=== PATIENT | male | born 1990 | race Hispanic/Latino ===

== ENCOUNTER 2024-01-28 23:07 | Emergency (ER) | payer SELFPAY ==
[2024-01-28 23:28] LABS: % Basophils 0.4 % (0-2); % Immature Granulocytes 0.4 % (0-0.5); % Lymphocytes 18.7 % (20.5-51.1); % Monocytes 7.2 % (1.7-9.3); % Neutrophils 73.3 % (42.2-75.2); Absolute Basophils 0.1 10^3/uL (0-0.2); Absolute Immature Granulocytes 0.1 10^3/uL (0-0.05); Absolute Lymphocytes 3.6 10^3/uL (1.2-3.4); Absolute Monocytes 1.4 10^3/uL (0.1-0.6); Absolute Neutrophils 14.2 10^3/uL (1.4-6.5); Hematocrit 46.7 % (39.0-52.0); Hemoglobin 17.4 g/dL (13.0-18.0); Mean Corp Hgb Conc. 37.3 g/dL (33.0-37.0); Mean Corpuscular Volume 80.5 fL (80.0-94.0); Mean Platelet Volume 10.8 fL (7.4-10.4); Nucleated Red Blood Cells % 0 % (-); Platelet Count 333 10^3/uL (130-400); Red Cell Dist. Width 12.6 % (11.5-14.5); White Blood Cell Count 19.3 10^3/uL (4.8-10.8)
[2024-01-28] MEDS: NSS 1000 IV (23:28)
[2024-01-28 23:32] VITALS: BP 152/95
[2024-01-28 23:45] LABS: Albumin > 6.0 g/dl (3.5-5.0); Alkaline Phosphatase 171 U/L (38-126); Blood Urea Nitrogen 23 mg/dl (9-20); Calcium 10.6 mg/dl (8.4-10.2); Carbon Dioxide 15 mmol/L (22-30); Chloride 86 mmol/L (98-107); Creatine Phosphokinase 1281 U/L (55-170); Glucose 204 mg/dl (70-99); Sodium 137 mmol/L (135-145); Total Bilirubin 1.4 mg/dl (0.2-1.3)
[2024-01-28 23:56] LABS: ALT (SGPT) 74 U/L (0-50); AST (SGOT) 84 U/L (17-59); Total Protein 10.3 g/dl (6.3-8.2); Troponin I 0.013 ng/ml
--- NOTE | 2024-01-28 23:56 | ED.GENMED ---
History of Present Illness
General
Chief Complaint: Fainting/Passed Out
Source: patient
Exam Limitations: none
Time Seen by Provider: 01/28/24 23:08
Nursing documentation reviewed up to this point in time: agreed with
History of Present Illness
History of Present Illness:
33-year-old male [place]-speaking, history performed with the help of HTP, presents after being found on the side of the road by law enforcement. 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
heat. Patient states that he drinks some water but does not feel that he drink enough. Denies any alcohol or drug use. Patient denies headache. When police found him, they called 911. EMS started a line gave him IV fluids and packed his
extremities and core with ice. Upon arrival patient stated he felt a lot better. Was able to drink fluids after the first liter of IV fluids completed.
Past History
Past History
ED Past Medical History: None
ED Past Surgical History: None
Review of Systems
Review of Systems
Allergies reviewed?: Yes
All Other Systems: ROS reviewed and negative except as documented in HPI and ROS
Constitutional: Reports fatigue
EENT: Reports no symptoms
Respiratory: Reports no symptoms
Cardiac: Reports palpitations
ABD/GI: Reports no symptoms
: Reports no symptoms
Musculoskeletal: Reports muscle pain and muscle stiffness
Skin: Reports no symptoms
Neurological: Reports dizzy
Endocrine: Reports no symptoms
Hematologic/Lymphatic: Reports no symptoms
Psychiatric: Reports no symptoms
Phy Exam
General Physical Exam
General Presentation: mild distress
General age: appears stated age
General Skin: warm, dry and flushed
General Habitus: normal
General Mental: alert
General Hydration: appears well hydrated
ENT Exam
ENT Exam: EOMI, pharynx normal, neck supple and normocephalic
Eye Exam
Eye Exam: PERRL, cornea clear and conjunctiva normal
Cardiovascular Exam
Cardiovascular Exam: regular rate/rhythm, no edema, no murmur and normal peripheral pulses
Pulmonary Exam
Pulmonary Exam: lungs clear, no respiratory distress, no rales, no crackles, no rhonchi, no stridor, no wheezing and no cough
Gastrointestinal Exam
Gastrointestinal Exam: normal bowel sounds, non tender, soft, no organomegaly, no pulsatile mass and non distended
Neurological Exam
Neurological Exam: alert and oriented x3
Musculoskeletal Exam
Musculoskeletal Exam: full ROM and no edema
Skin Exam
Skin Exam: warm/dry and warmth
Psychiatric Exam
Psychiatric Exam: normal mood/affect
Course
Orders/Labs/Results
Orders:
Orders
01/28/24 23:08
Urinalysis Urgent
Date Specimen was Collected: 01/28/24
Time Specimen was Collected: 23:50
0.9% Sodium Chloride 1000 ml [Nss] 1,000 ml IV BOLUS
01/28/24 23:09
Electrocardiogram (*1) Urgent
Reason for Study: Vertigo / Dizzy
EKG- Treatment ONCE
01/28/24 23:21
Alcohol Urgent
CPK [Creatine Phosphokinase] Urgent
Complete Blood Count/With Diff Urgent
Comprehensive Metabolic Panel Urgent
Troponin I Urgent
01/28/24 23:57
0.9% Sodium Chloride 1000 ml [Nss] 1,000 ml IV BOLUS
01/29/24 00:52
Urine Microscopic Urgent
Date Specimen was Collected: 01/28/24
Time Specimen was Collected: 23:50
01/29/24 01:10
Add On- LAB Urgent
Tests Added?: CPK Isoenzyme
01/29/24 02:10
CPK [Creatine Phosphokinase] Urgent
01/29/24 05:19
Basic Metabolic Panel Urgent
01/29/24 06:12
Add On- LAB Urgent
Tests Added?: CK
Abnormal Lab Results
01/28/24 01/29/24 01/29/24
23:21 00:52 02:10
WBC 19.3 H 10^3/uL
(4.8-10.8)
MCHC 37.3 H g/dL
(33.0-37.0)
MPV 10.8 H fL
(7.4-10.4)
Abs Immat Gran (auto) 0.1 H 10^3/uL
(0-0.05)
Absolute Neuts (auto) 14.2 H 10^3/uL
(1.4-6.5)
Absolute Lymphs (auto) 3.6 H 10^3/uL
(1.2-3.4)
Absolute Monos (auto) 1.4 H 10^3/uL
(0.1-0.6)
Lymphocytes % 18.7 L %
(20.5-51.1)
Potassium
Chloride 86 L mmol/L
(98-107)
Carbon Dioxide 15 L mmol/L
(22-30)
BUN 23 H mg/dl
(9-20)
Creatinine 3.0 H mg/dL
(0.7-1.3)
Glucose 204 H mg/dl
(70-99)
Calcium 10.6 H mg/dl
(8.4-10.2)
Total Bilirubin 1.4 H mg/dl
(0.2-1.3)
AST 84 H U/L
(17-59)
ALT 74 H U/L
(0-50)
Alkaline Phosphatase 171 H U/L
(38-126)
Creatine Kinase 1281 H U/L 2360 H D U/L
(55-170) (55-170)
CK-MB (CK-2) 14.7 H ng/ml
(0.0-2.4)
Total Protein 10.3 H g/dl
(6.3-8.2)
Albumin > 6.0 H g/dl
(3.5-5.0)
Urine Ketones Trace A
(Negative)
Urine Occult Blood 4+ A
(Negative)
Urine RBC 11-15 A /HPF
(0-2)
Urine Bacteria Moderate A
(Negative)
Urine Albumin 1+ A
(Neg - Trace)
01/29/24
05:19
WBC
MCHC
MPV
Abs Immat Gran (auto)
Absolute Neuts (auto)
Absolute Lymphs (auto)
Absolute Monos (auto)
Lymphocytes %
Potassium 3.4 L mmol/L
(3.5-5.1)
Chloride
Carbon Dioxide
BUN
Creatinine
Glucose 109 H mg/dl
(70-99)
Calcium 8.0 L D mg/dl
(8.4-10.2)
Total Bilirubin
AST
ALT
Alkaline Phosphatase
Creatine Kinase
CK-MB (CK-2)
Total Protein
Albumin
Urine Ketones
Urine Occult Blood
Urine RBC
Urine Bacteria
Urine Albumin
01/28/24 23:21
01/29/24 05:19
Vital Signs
Initial and Last Documented VS:
Initial Vital Signs
Temp Pulse Resp BP Pulse Ox
98.6 F 107 18 152/95 98
01/28/24 23:32 01/28/24 23:32 01/28/24 23:32 01/28/24 23:32 01/28/24 23:32
Last Documented Vital Signs
Temp Pulse Resp BP Pulse Ox
98.8 F 90 20 144/67 97
01/29/24 05:21 01/29/24 03:52 01/29/24 03:52 01/29/24 05:00 01/29/24 05:15
*Critical Care Note
Total Time (30-74mins, 75-104mins- exclusive of procedures): Not Applicable
Update Note
Update Note:
01/28/2024 2356 PM: Patient drinking ice water without issue. He had 1 L of fluids. A second liter is ordered.
01/29/2024 0621 AM: Patient received several bags of IV fluids. He has been tolerating liquids normally. Discussed admission with patient through the help of language line solutions. At this time patient does not wish to be admitted. Prior to my
discussion with him he had already called his brother to come pick him up. Patient strongly advised not to work outside today. We did discuss return to ER instructions with patient. He has no questions at this time
ED Attending Note
-
Portions of this chart may have been created with voice recognition software.� Occasional wrong word or��sound alike� substitutions may have occurred due to the inherent limitations of voice recognition software.
Discharge Plan
Departure
Patient Disposition: Home (Routine Discharge)
Date of Disposition: 01/29/24
Time of Disposition: 06:22
Patient with high blood pressure during this ER visit?: Yes
Condition: Good
Discharge Problem:
Heat exhaustion, Acute dehydration, Rhabdomyolysis
Instructions: Rhabdomyolysis, Heat Exhaustion and Heat Stroke (DC), Syncope (Fainting) (DC), Dehydration, Adult ED, BLOOD PRESSURE
Referrals:
[facility] [Outside]
[facility] [Outside]
NONE,* [Family Provider] -
Activity Restrictions/Additional Instructions:
Fue un placer conocerle y participar en gaffney atenci�n. Esperamos gaffney continua curaci�n y bienestar.
Ofelia las instrucciones de madelyn en gaffney totalidad. Sin embargo, son para educaci�n general y es posible que no describan gaffney diagn�stico exacto al momento del madelyn. Se darrel� con usted la informaci�n sobre gaffney visita a la nicol de emergencias y robert
condiciones m�dicas junto con la informaci�n de seguimiento adecuada...
Si est� indicado, tome robert medicamentos seg�n las instrucciones y lo indicado en la documentaci�n de madelyn.
Programe jose c roderick de seguimiento seg�n las indicaciones. Llame para hacer jose c roderick
Regrese al departamento de emergencias si CUALQUIER cambio, persistencia o empeoramiento de los s�ntomas. Si alguno de robert s�ntomas no mejora, persiste o se vuelve m�s grave dentro de 6 a 12 horas, regrese al departamento de emergencias para
recibir atenci�n adicional.
Regrese al departamento de emergencias si presenta dolor de archie, dolor o rigidez en el janes, fiebre superior a 100,4 �F, dolor en el pecho, dificultad para respirar, n�useas persistentes, v�mitos, dificultad para hablar, dificultad para
caminar, entumecimiento/hormigueo, debilidad, signos de infecci�n. o cualquier otro s�ntoma que le preocupe.
Si tiene alguna pregunta o inquietud, no dude en llamar al Hospital al o enviarme un correo electr�carlos alberto directamente a [email or web address].
It was a pleasure meeting you and taking part in your care. We hope for your continued healing and wellness.
Please read discharge instructions in their entirety. However, they are for general education and may not describe your exact diagnosis at discharge. Information on your ER visit and medical conditions were discussed with you along with appropriate
follow up information...
If indicated, please take your medications as instructed and indicated on discharge paperwork.
Please schedule a follow up appointment as directed. Call to schedule an appointment
Please return to the emergency department with ANY change in, persisting, or worsening of symptoms. If any of your symptoms do not improve, or persist, or become more severe within 6-12 hours, please return to the emergency department for further
care.
Please return to the emergency department if you develop a headache, neck pain/stiffness, fever greater than 100.4F, chest pain, shortness of breath, persistent nausea, vomiting, slurred speech, difficulty walking, numbness/tingling, weakness, signs
of infection or any other symptoms that are worrisome to you.
If you have any questions or concerns please do not hesitate to call the Hospital at or E-mail me directly at [email or web address]
Interventions
Interventions:
*General Assessment Last Done: 01/28/24 23:36
ED- Cardiac Assessment Last Done: 01/28/24 23:34
ED- Neurological Assessment Last Done: 01/28/24 23:34
Discharge Date and Time
Print Language: [place]
[2024-01-28 23:59] LABS: Alcohol None Detected
[2024-01-29] VITALS (7 sets, daily range): BP systolic 125–157; BP diastolic 62–99
[2024-01-29] MEDS: NSS 1000 IV (00:13)
[2024-01-29 01:11] LABS: Urine Albumin 1+ (Neg - Trace); Urine Bilirubin Negative (Negative); Urine Character Clear (Clear); Urine Color Yellow; Urine Glucose Negative (Negative); Urine Ketone Trace (Negative); Urine Leukocyte Negative (Negative); Urine Nitrite Negative (Negative); Urine Occult Blood 4+ (Negative); Urine Urobilinogen Negative (Neg - 1+)
[2024-01-29 01:30] LABS: Urine Bacteria Moderate (Negative); Urine Mucus Moderate
[2024-01-29 02:15] LABS: CKMB 14.7 ng/ml (0.0-2.4)
[2024-01-29 02:54] LABS: Creatine Phosphokinase 2360 U/L (55-170)
[2024-01-29 06:06] LABS: Blood Urea Nitrogen 19 mg/dl (9-20); Carbon Dioxide 25 mmol/L (22-30); Chloride 104 mmol/L (98-107); Glucose 109 mg/dl (70-99); Potassium 3.4 mmol/L (3.5-5.1); Sodium 138 mmol/L (135-145); eGFR > 60.00
[2024-01-29 07:29] LABS: Creatine Phosphokinase 2991 U/L (55-170)
== END 2024-01-29 07:06 | disposition home or self-care (01) ==
LOC: EMR 23:07
PROVIDERS: EMERGENCY PHYSICIAN Student in an Organized Health Care Education/Training Program
DX: E86.0 Dehydration (principal); M62.82 Rhabdomyolysis; T67.5XXA Heat exhaustion, unspecified, initial encounter; X30.XXXA Exposure to excessive natural heat, initial encounter
CPT/HCPCS: 99283; 80048; 80053; 81003; 81015; 82077; 82550; 82553; 84484; 85025; 93005